=== PATIENT | female | born 1990 | race Caucasian/White ===

== ENCOUNTER → 2020-09-29 15:10 | Outpatient (CLI) | payer OTHER, SELFPAY ==
[2020-09-29 16:07] LABS: Basophils # 0.1 K/mm3 (0-0.2); Basophils % 0.6 % (0.1-2.0); Eosinophils # 0.2 K/mm3 (0.0-0.4); Eosinophils % 1.5 % (0.1-12.0); Hematocrit 35.5 % (37.0-47.0); Hemoglobin 11.4 g/dL (12.2-16.2); Lymphocytes # 3.6 K/mm3 (0.7-4.5); Lymphocytes % 32.6 % (10-50); Mean Corpuscular HGB Conc 32.1 g/dL (31.8-35.4); Mean Corpuscular Hemoglobin 27.7 pg (27.0-31.2); Mean Corpuscular Volume 86.1 fl (81-99); Monocytes # 0.4 K/mm3 (0.1-1.0); Monocytes % 3.4 % (1.7-9.3); Neutrophils # 6.9 K/mm3 (1.8-7.8); Neutrophils % 61.9 % (37.0-80.0); Platelet Count 349 K/mm3 (142-424); Red Blood Count 4.12 M/mm3 (4.20-5.40); Red Cell Distribution Width 16.6 % (11.5-17.5); White Blood Count 11.1 K/mm3 (4.8-10.8)
[2020-09-29 16:46] LABS: 25-OH Vitamin D, Total 19.9 ng/mL (30-100)
[2020-09-29 17:18] LABS: Vitamin B12 209 pg/mL (239-931)
[2020-09-29 18:03] LABS: Ferritin 5.03 ng/ml (6.24-137)
[2020-10-01 08:28] LABS: HIV Screen 4th Generation wRfx Non Reactive (Non Reactive)
[2020-10-01 10:12] LABS: HSV 2 IgG, Type Spec <0.91 index (0.00-0.90); Hepatitis B Surface Antigen Negative (Negative); Hepatitis C Antibody <0.1 s/co ratio (0.0-0.9); Rapid Plasma Reagin Ab Titer Non Reactive (NonRea<1:1); Rubella Antibodies, IgG 1.18 index (Immune >0.99)
== END ==
PROVIDERS: Visit Provider Nurse Practitioner Obstetrics & Gynecology
DX: Z34.90 Encounter for supervision of normal pregnancy, unspecified, unspecified trimester (principal)
CPT/HCPCS: 36415; 82306; 82607; 82728; 85025; 86592; 86695; 86703; 86762; 86790; 86850; 86870; 87340; 87380; G0432

== ENCOUNTER 2020-10-01 14:01 | Emergency (ER) | payer OTHER, SELFPAY ==
[2020-10-01] VITALS (7 sets, daily range): BP systolic 101–109; BP diastolic 65–71; PULSE 64–72; RESP 14–18; TEMP 36.6–36.7; O2SAT 100; BMI 27.6
--- NOTE | 2020-10-01 13:57 | ECG_ITS ---
APPROVED REPORT Exam: Resting ECG HR:69 bpm ECG Measurements Heart Rate 69 AXES NE 128 P 71 QRSd 96 QRS 77 QT 410 T 52 QTc 439 Conclusion Normal sinus rhythm Normal ECG Electronically signed by : Rudy Rider, 10/02/2020 08:45:51
--- NOTE | 2020-10-01 14:15 | HMH.EDGENADL ---
ED Disposition Clinical Impression: Atypical chest pain Disposition: Home, Self-Care Condition on Discharge: Good Instructions: DI for Atypical Chest Pain Additional Instructions: Additional instructions for CHEST PAIN: See your physician as soon as possible for further evaluation. Return immediately if worsening chest pain, vomiting, shortness of breath, fever, coughing of blood. Referrals: Luis Manuel Aguirre [Primary Care Provider] - - Critical Care Critical Care Time: No Attestation: On 10/01/20, the high probability of a clinically significant, sudden or life threatening deterioration of the following system(s) required my full and direct attention, intervention and personal management. The time I documented below is in addition to time spent performing reported procedures but includes the following listed in this critical care notation. Medical Decision Making - Alex Inquiry Pt receiving controlled substance: No Vital Signs: 10/01/20 14:05 10/01/20 14:11 10/01/20 14:15 Temperature 98.1 F Temperature Source Oral Pulse Rate 65 66 Pulse Rate [Right Radial] 72 Respiratory Rate 18 15 17 Blood Pressure Blood Pressure [Right Arm] 106/69 L Blood Pressure Mean Blood Pressure Mean [Right Arm] 81 02 Sat by Pulse Oximetry 100 100 100 Oxygen Delivery Method Room Air 10/01/20 14:30 10/01/20 14:45 10/01/20 15:00 Temperature Temperature Source Pulse Rate 64 66 65 Pulse Rate [Right Radial] Respiratory Rate 15 16 17 Blood Pressure 101/65 L 108/68 L Blood Pressure [Right Arm] Blood Pressure Mean 74 74 Blood Pressure Mean [Right Arm] 02 Sat by Pulse Oximetry 100 100 100 Oxygen Delivery Method - Lab Data Lab Results 10/01/20 14:00: WBC 8.9, RBC 4.04 L, Hgb 11.0 L, Hct 35.0 L, MCV 86.6, MCH 27.2, MCHC 31.4 L, RDW 16.0, Plt Count 325, MPV 7.1 L, Neut % (Auto) 60.5, Lymph % (Auto) 32.4, [place] % (Auto) 5.0, Eos % (Auto) 1.4, Baso % (Auto) 0.6, Neut # (Auto) 5.4, Lymph # (Auto) 2.9, [place] # (Auto) 0.5, Eos # (Auto) 0.1, Baso # (Auto) 0.1 10/01/20 14:00: Sodium 134 L, Potassium 3.4 L, Chloride 103, Carbon Dioxide 24, Anion Gap 10.4, BUN 8, Creatinine 0.60, Estimated Creat Clear 175, Estimated GFR 116, Est GFR ( Amer) 140, Glucose 95, Calcium 9.6, Troponin I < 0.01 Result diagrams: 10/01/20 14:00 10/01/20 14:00 Orders (Tests/Meds): ORDERS Category Date Time Status Troponin I Q3H Lab 10/01/20 17:30 Ordered Troponin I Q3H Lab 10/01/20 20:30 Ordered - ECG Data Tracing #1 EKG interpreted by Migel Alfaro MD: Rhythm: sinus Rate: 69 [place]: normal Ectopy: none Conduction: normal ST Segment Changes: none T Wave Changes: none Q Waves: none No evidence of acute ischemia or injury Normal electrocardiogram Medical Decision Narrative: I do not suspect cardiovascular disease based on presentation. Discussed further work-up with the patient to rule out pulmonary cause including pulmonary embolism. The patient states that she does not want any radiographic studies. I discussed the D-dimer, which is expected to rise in , and would only be helpful if negative. Because of the D-dimer were elevated she would still not want any sort of radiographic studies. I therefore do not feel that D-dimer would be clinically useful. The patient symptoms have completely resolved. She has normal vital signs, no tachycardia, pulse ox of 100% on room air. I feel she can be discharged to return if her symptoms worsen, otherwise follow-up with her primary care doctor for outpatient work-up. General Adult HPI - General Chief complaint: Chest Pain Stated complaint: chest pain Time Seen by Provider: 10/01/20 15:30 Mode of Arrival: Ambulatory Limitations: No Limitations Description of Symptoms (Recalled from ER Triage Doc. by RN): Pt complains of chest pain that started this morning, describes that the pain started under her right breast bone radiating into u
[2020-10-01 14:26] LABS: Basophils # 0.1 K/mm3 (0-0.2); Basophils % 0.6 % (0.1-2.0); Eosinophils # 0.1 K/mm3 (0.0-0.4); Eosinophils % 1.4 % (0.1-12.0); Lymphocytes # 2.9 K/mm3 (0.7-4.5); Lymphocytes % 32.4 % (10-50); Mean Corpuscular HGB Conc 31.4 g/dL (31.8-35.4); Mean Corpuscular Hemoglobin 27.2 pg (27.0-31.2); Mean Corpuscular Volume 86.6 fl (81-99); Mean Platelet Volume 7.1 fl (7.4-10.4); Monocytes # 0.5 K/mm3 (0.1-1.0); Neutrophils # 5.4 K/mm3 (1.8-7.8); Neutrophils % 60.5 % (37.0-80.0); Platelet Count 325 K/mm3 (142-424); Red Blood Count 4.04 M/mm3 (4.20-5.40); White Blood Count 8.9 K/mm3 (4.8-10.8)
[2020-10-01 14:27] LABS: Chloride 103 mmol/L (98-107); Sodium 134 mmol/L (136-145)
[2020-10-01 14:28] LABS: Potassium 3.4 mmoL/L (3.5-5.1)
[2020-10-01 14:31] LABS: Anion Gap 10.4 mEq/L (5-15); Blood Urea Nitrogen 8 mg/dl (7-17); Calcium 9.6 mg/dl (8.4-10.2); Carbon Dioxide 24 mmol/L (22.0-30.0); Creatinine Clearance Estimated 175 mL/min (50-200); Estimated Glomerular Filt Rate 116 ml/min (>60); GFR (African American) 140 ML/MIN (>60); Glucose 95 mg/dl (74-100)
[2020-10-01 14:44] LABS: Troponin I < 0.01 ng/ml (0.00-0.034)
== END 2020-10-01 16:41 | disposition home or self-care (01) ==
PROVIDERS: Emergency Provider Emergency Medicine; PCP Family Medicine
DX: R07.89 Other chest pain (principal); Z3A.10 10 weeks gestation of pregnancy
CPT/HCPCS: 80048; 84484; 85025; 93005; 99282

== ENCOUNTER → 2020-10-04 13:46 | Outpatient (CLI) | payer OTHER, SELFPAY ==
--- NOTE | 2020-10-04 13:46 | US_ITS ---
PROCEDURE: US OB <= 14 WEEKS FETUS CLINICAL INDICATION: for dates COMPARISON: No exams were available for comparison FINDINGS: An intrauterine gestational sac is present with a pole with a crown-rump length of 3.91cm correlating to gestational age of 10weeks 6days. heart tones are present with an FHR of 174bpm. Yolk sac is noted. Unremarkable adnexa IMPRESSION: Live IUP 10 weeks 6 days Estimated due date by Ultrasound is 04/26/2021 Dictated by: Je Smith MD 10/05/2020 16:21 Je Smith MD in [place] 10/05/2020 16:21
== END ==
PROVIDERS: PCP Nurse Practitioner Family; Visit Provider Nurse Practitioner Obstetrics & Gynecology
DX: Z34.90 Encounter for supervision of normal pregnancy, unspecified, unspecified trimester (principal)
CPT/HCPCS: 76801

== ENCOUNTER → 2020-10-27 15:20 | Outpatient (CLI) | payer OTHER, SELFPAY | PROVIDERS: Visit Provider Nurse Practitioner Obstetrics & Gynecology | DX: Z31.430 Encounter of female for testing for genetic disease carrier status for procreative management (principal); Z36.0 Encounter for antenatal screening for chromosomal anomalies; O28.3 Abnormal ultrasonic finding on antenatal screening of mother | CPT/HCPCS: 36415 ==

== ENCOUNTER → 2020-12-09 12:36 | Outpatient (CLI) | payer OTHER, SELFPAY ==
--- NOTE | 2020-12-09 12:37 | US_ITS ---
PROCEDURE: US OB >= 14 WEEKS FETUS CLINICAL INDICATION: 20 wk plus anatomy scan-After 14 wks COMPARISON: US US OB <= 14 WEEKS FETUS from 10/04/2020 FINDINGS: There is a single live fetus present which is in breech presentation. heart body motion noted. Cervix is closed measuring 4 cm. The placenta is anterior and grade 1. Complete survey performed and was unremarkable on the submitted images as in PACS. No discrete anomalies identified on survey imaging by technologist. Active fetus. Three-vessel cord with satisfactory umbilical cord insertion. 4- chamber heart noted. Survey of brain & ventricles Unremarkable. Face and neck survey unremarkable. Diaphragm and chest views unremarkable. Abdomen: Both kidneys noted and unremarkable. Stomach noted and satisfactory. Spine: Survey of the spine satisfactory with no anomalies identified nor imaged. Both arms and legs noted. Amniotic Fluid: Adequate. Maternal adnexa: No significant findings. Measurements: Average ultrasound age 20weeks 1day. Gestational Age 20weeks 1day Estimated due date by ultrasound age 1104/27/2021. Estimated weight 342g BPD = 20weeks 2days OFD = 20weeks 1day HC = 19weeks 3days AC = 20weeks 3days FL = 20weeks 2days Growth Percentile= 43% Heart Rate = 147bpm Cerebellum = 20weeks 2days Humerus = 20weeks 5days HC/AC is 1.1 CI is 0.8 FL/BPD is 0.7 FL/AC is 0.22 IMPRESSION: Live IUP in breech presentation with an average ultrasound age of 20 weeks and 1 day. All parameters correlate with no obvious anomalies. Please see above for detail. Dictated by: Je Smith MD 12/09/2020 16:08 Je Smith MD in [place] 12/09/2020 16:08
== END ==
PROVIDERS: PCP Family Medicine; Visit Provider Nurse Practitioner Obstetrics & Gynecology
DX: Z36.0 Encounter for antenatal screening for chromosomal anomalies (principal)
CPT/HCPCS: 76805

== ENCOUNTER → 2021-02-09 08:39 | Outpatient (CLI) | payer OTHER, SELFPAY ==
[2021-02-09 09:26] LABS: Glucose,Fasting 82 mg/dl (74-100)
[2021-02-09 10:21] LABS: Glucose 1 Hour 149 mg/dL (74-100)
== END ==
PROVIDERS: Visit Provider Nurse Practitioner Obstetrics & Gynecology
DX: Z34.90 Encounter for supervision of normal pregnancy, unspecified, unspecified trimester (principal)
CPT/HCPCS: 36415; 82951

== ENCOUNTER → 2021-03-18 11:19 | Outpatient (CLI) | payer OTHER, SELFPAY ==
[2021-03-18 11:41] LABS: Basophils # 0.1 K/mm3 (0-0.2); Basophils % 0.4 % (0.1-2.0); Eosinophils # 0.2 K/mm3 (0.0-0.4); Eosinophils % 1.3 % (0.1-12.0); Hematocrit 36.1 % (37.0-47.0); Hemoglobin 11.4 g/dL (12.2-16.2); Lymphocytes # 2.8 K/mm3 (0.7-4.5); Mean Corpuscular HGB Conc 31.6 g/dL (31.8-35.4); Mean Corpuscular Hemoglobin 30.1 pg (27.0-31.2); Mean Corpuscular Volume 95.3 fl (81-99); Mean Platelet Volume 7.1 fl (7.4-10.4); Monocytes # 0.4 K/mm3 (0.1-1.0); Monocytes % 3.1 % (1.7-9.3); Neutrophils # 8.2 K/mm3 (1.8-7.8); Neutrophils % 71.3 % (37.0-80.0); Platelet Count 366 K/mm3 (142-424); Red Blood Count 3.79 M/mm3 (4.20-5.40); Red Cell Distribution Width 14.1 % (11.5-17.5); White Blood Count 11.6 K/mm3 (4.8-10.8)
[2021-03-18 12:03] LABS: Glucose,Fasting 85 mg/dl (74-100)
[2021-03-18 12:52] LABS: 25-OH Vitamin D, Total 33.8 ng/mL (30-100)
[2021-03-18 13:24] LABS: Vitamin B12 236 pg/mL (239-931)
== END ==
PROVIDERS: Visit Provider Nurse Practitioner Obstetrics & Gynecology
DX: Z34.90 Encounter for supervision of normal pregnancy, unspecified, unspecified trimester (principal); Z3A.29 29 weeks gestation of pregnancy; R73.09 Other abnormal glucose
CPT/HCPCS: 36415; 82306; 82607; 82951; 85025

== ENCOUNTER → 2021-03-25 11:15 | Outpatient (CLI) | payer OTHER, SELFPAY ==
--- NOTE | 2021-03-25 11:20 | US_ITS ---
PROCEDURE: US OB BPP W/FET-MAT S/D CLINICAL INDICATION: FINDINGS: The following parameters are obtained: There is a single live fetus present in cephalic presentation. heart and body motion noted. The placenta is anterior and grade 2. Average ultrasound age is Average 35weeks 1day Estimated due date by ultrasound is 04/28/2021. Estimated weight is 2,552g. This is 34 percentile. Biophysical profile 8 of 8. ROBERT is 12 cm. Cervix is closed and measures 4 cm in length. SD ratio is 2.0 with a resistive index of 0.5 both less than 90th percentile. BPD: 35weeks 2days OFD: 34 weeks 4 days HC: 34weeks 6days AC: 35weeks FL: 35weeks heart rate: 144bpm bpm. HC/AC: 1.01 Cephalic index: 0.79 FL/BPD: 0.78 FL/AC: 0.22 Amniotic fluid index: 12.42cm The femur length is 35weeks Biophysical profile is 8 of 8. IMPRESSION: There is a single live fetus present in cephalic presentation. heart and body motion noted. The placenta is anterior and grade 2. Average ultrasound age is Average 35weeks 1day Estimated due date by ultrasound is 04/28/2021. Estimated weight is 2,552g. This is 34 percentile. Biophysical profile 8 of 8. ROBERT is 12 cm. Cervix is closed and measures 4 cm in length. SD ratio is 2.0 with a resistive index of 0.5 both less than 90th percentile. Dictated by: Je Smith MD 03/25/2021 15:11 Je Smith MD in [place] 03/25/2021 15:11
== END ==
PROVIDERS: PCP Family Medicine; Visit Provider Nurse Practitioner Obstetrics & Gynecology
DX: O36.5990 Maternal care for other known or suspected poor fetal growth, unspecified trimester, not applicable or unspecified (principal)
CPT/HCPCS: 76811; 76819; 76820

== ENCOUNTER → 2021-04-01 15:07 | Outpatient (CLI) | payer OTHER, SELFPAY | LOC: LAB 15:08 → LAB.DROPOF 15:09 | PROVIDERS: Visit Provider Nurse Practitioner Obstetrics & Gynecology | DX: Z34.90 Encounter for supervision of normal pregnancy, unspecified, unspecified trimester (principal) | CPT/HCPCS: 86403 ==

== ENCOUNTER 2021-04-11 21:17 | Outpatient (CLI) | payer OTHER, SELFPAY ==
[2021-04-11 21:31] VITALS: BP 130/71; PULSE 66; RESP 18; TEMP 36.7; O2SAT 100; BMI 28.5
[2021-04-12 01:01] LABS: Microscopic, Urine URINE MICROSCOPIC (MICROSCOPIC)
[2021-04-12 01:23] LABS: Bilirubin,Urine Negative (Negative); Blood, Urine Negative (Negative); Glucose,Urine (UA) Negative (Negative); Ketones,Urine 1+ (Negative); Leukocyte Esterase,Urine Negative (Negative); Nitrate,Urine Negative (Negative); Protein,Urine Negative (Negative); Urobilinogen,Urine 0.2 EU/dl (0.2)
[2021-04-12 01:27] LABS: Appearance,Urine Slightly Cloudy (Clear); Color,Urine Dark Yellow (Yellow)
[2021-04-12 01:38] LABS: Amphetamine/Metha Screen,Urine Negative ng/ml (<1000); Barbiturates Screen,Urine Negative ng/ml (<200)
[2021-04-12 01:39] LABS: Benzodiazepines Screen,Urine Negative ng/ml (<200)
[2021-04-12 01:40] LABS: Cannabinoid Screen,Urine Positive ng/ml (<50); Cocaine Screen,Urine Negative ng/ml (<300)
[2021-04-12 01:41] LABS: Methadone Screen,Urine Negative ng/ml (<300); Opiate Screen,Urine Negative ng/ml (<300)
[2021-04-12 01:42] LABS: Phencyclidine Screen,Urine Negative ng/ml (<25)
[2021-04-12 01:58] LABS: Bacteria,Urine 1+ /lpf
== END 2021-04-11 23:36 | disposition home or self-care (01) ==
LOC: OBOUT 21:21 → OB 21:21
PROVIDERS: PCP Family Medicine; Visit Provider Nurse Practitioner Obstetrics & Gynecology
DX: O60.03 Preterm labor without delivery, third trimester (principal); Z3A.37 37 weeks gestation of pregnancy
CPT/HCPCS: 59025; 80305; 81001; 96365; 96372; G0463

== ENCOUNTER → 2021-04-18 11:00 | Outpatient (CLI) | payer OTHER, SELFPAY ==
[2021-04-18 11:34] LABS: Basophils # 0.1 K/mm3 (0-0.2); Basophils % 1.2 % (0.1-2.0); Eosinophils # 0.1 K/mm3 (0.0-0.4); Eosinophils % 0.6 % (0.1-12.0); Hematocrit 35.2 % (37.0-47.0); Hemoglobin 11.6 g/dL (12.2-16.2); Lymphocytes % 31.4 % (10-50); Mean Corpuscular Hemoglobin 29.9 pg (27.0-31.2); Mean Corpuscular Volume 90.8 fl (81-99); Mean Platelet Volume 8.3 fl (7.4-10.4); Monocytes # 0.3 K/mm3 (0.1-1.0); Monocytes % 3.6 % (1.7-9.3); Neutrophils % 63.1 % (37.0-80.0); Platelet Count 419 K/mm3 (142-424); Red Blood Count 3.87 M/mm3 (4.20-5.40); Red Cell Distribution Width 14.8 % (11.5-17.5); White Blood Count 9.5 K/mm3 (4.8-10.8)
[2021-04-18 14:22] LABS: Chloride 103 mmol/L (98-107); Potassium 4.7 mmoL/L (3.5-5.1); Sodium 133 mmol/L (136-145)
[2021-04-18 14:25] LABS: Anion Gap 8.7 mEq/L (5-15); Blood Urea Nitrogen 13 mg/dl (7-17); Calcium 8.9 mg/dl (8.4-10.2); Carbon Dioxide 26 mmol/L (22.0-30.0); Estimated Glomerular Filt Rate 73 ml/min (>60); GFR (African American) 88 ML/MIN (>60); Glucose 79 mg/dl (74-100)
== END ==
PROVIDERS: Visit Provider Nurse Practitioner Obstetrics & Gynecology
DX: Z01.818 Encounter for other preprocedural examination (principal); Z34.90 Encounter for supervision of normal pregnancy, unspecified, unspecified trimester
CPT/HCPCS: 36415; 80048; 85025; C9803; U0003; U0005

== ENCOUNTER 2021-04-19 06:15 | Outpatient (CLI) | payer OTHER, SELFPAY ==
[2021-04-19 06:30] VITALS: BMI 27.9
[2021-04-19 06:55] LABS: Microscopic, Urine URINE MICROSCOPIC (MICROSCOPIC)
[2021-04-19 06:57] LABS: Appearance,Urine CLEAR (Clear); Bilirubin,Urine Negative (Negative); Blood, Urine 1+ (Negative); Color,Urine YELLOW (Yellow); Glucose,Urine (UA) Negative (Negative); Ketones,Urine Negative (Negative); Leukocyte Esterase,Urine 1+ (Negative); Nitrate,Urine Negative (Negative); Protein,Urine Negative (Negative); Specific Gravity, Urine 1.025 (1.005-1.030); Urobilinogen,Urine 0.2 EU/dl (0.2)
[2021-04-19 07:00] VITALS: BP 115/75; PULSE 72; RESP 18; TEMP 36.9; O2SAT 100; BMI 27.9
[2021-04-19 07:12] LABS: Barbiturates Screen,Urine Negative ng/ml (<200)
[2021-04-19 07:13] LABS: Amphetamine/Metha Screen,Urine Negative ng/ml (<1000); Benzodiazepines Screen,Urine Negative ng/ml (<200)
[2021-04-19 07:14] LABS: Methadone Screen,Urine Negative ng/ml (<300)
[2021-04-19 07:15] LABS: Cannabinoid Screen,Urine Positive ng/ml (<50); Cocaine Screen,Urine Negative ng/ml (<300)
[2021-04-19 07:16] LABS: Opiate Screen,Urine Negative ng/ml (<300); Phencyclidine Screen,Urine Negative ng/ml (<25)
[2021-04-19 07:25] LABS: Amorphous Sediment,Urine 1+ /lpf; Bacteria,Urine 1+ /lpf
[2021-04-19 07:28] LABS: Yeast,Urine 1+ /lpf
== END 2021-04-19 09:38 | disposition home or self-care (01) ==
LOC: OBOUT 06:17 → OB 06:18 → OBOUT 06:20 → OB 06:24
PROVIDERS: Visit Provider Nurse Practitioner Obstetrics & Gynecology
DX: Z34.90 Encounter for supervision of normal pregnancy, unspecified, unspecified trimester (principal)
CPT/HCPCS: 59025; 80305; 81001; 87086; G0463

== ENCOUNTER 2021-04-19 23:30 | Inpatient (IN) | payer OTHER, SELFPAY ==
[2021-04-19 23:15] VITALS: BP 123/82; PULSE 70; RESP 18; TEMP 37.3; O2SAT 97; BMI 28.5
[2021-04-20 00:10] VITALS: BMI 28.5
[2021-04-20 00:18] LABS: Coronavirus 19, PCR Not Detected (NotDetected); Influenza A, PCR Not Detected (NotDetected); Influenza B, PCR Not Detected (NotDetected)
[2021-04-20 00:40] LABS: Basophils # 0.1 K/mm3 (0-0.2); Basophils % 0.5 % (0.1-2.0); Eosinophils # 0.1 K/mm3 (0.0-0.4); Eosinophils % 0.6 % (0.1-12.0); Hematocrit 33.9 % (37.0-47.0); Hemoglobin 10.9 g/dL (12.2-16.2); Lymphocytes # 2.9 K/mm3 (0.7-4.5); Lymphocytes % 21.7 % (10-50); Mean Corpuscular HGB Conc 32.1 g/dL (31.8-35.4); Mean Corpuscular Hemoglobin 29.2 pg (27.0-31.2); Mean Corpuscular Volume 90.7 fl (81-99); Mean Platelet Volume 8.4 fl (7.4-10.4); Monocytes # 0.4 K/mm3 (0.1-1.0); Monocytes % 3.3 % (1.7-9.3); Neutrophils # 9.8 K/mm3 (1.8-7.8); Platelet Count 413 K/mm3 (142-424); Red Blood Count 3.74 M/mm3 (4.20-5.40); Red Cell Distribution Width 14.9 % (11.5-17.5); White Blood Count 13.2 K/mm3 (4.8-10.8)
[2021-04-20 04:34] VITALS: BP 121/56; PULSE 65; RESP 17; TEMP 37; O2SAT 99
[2021-04-20 08:00] VITALS: BP 110/56; PULSE 71; RESP 20; TEMP 36.8; O2SAT 99
[2021-04-20 08:04] LABS: Hematocrit 31.7 % (37.0-47.0); Hemoglobin 10.7 g/dL (12.2-16.2)
--- NOTE | 2021-04-20 11:08 | HMH.ACPN2 ---
Internal Medicine - PN: Subj *Date: 04/20/21 *Time: 11:08 Interval history: She continues to do well. She says that she is bottlefeeding. Her lochia is normal. She denies any pain. Exam Vital signs and Labs for Last 24 Hours: Temp Pulse Resp BP Pulse Ox 98.3 F 71 20 110/56 L 99 04/20/21 08:00 04/20/21 08:00 04/20/21 08:00 04/20/21 08:00 04/20/21 08:00 Laboratory Results - last 24 hr 04/19/21 23:28: Blood Type O Negative, Antibody Screen Positive 04/20/21 00:10: WBC 13.2 H D, RBC 3.74 L, Hgb 10.9 L, Hct 33.9 L, MCV 90.7, MCH 29.2, MCHC 32.1, RDW 14.9, Plt Count 413, MPV 8.4, Neut % (Auto) 74.0, Lymph % (Auto) 21.7, [place] % (Auto) 3.3, Eos % (Auto) 0.6, Baso % (Auto) 0.5, Neut # (Auto) 9.8 H, Lymph # (Auto) 2.9, [place] # (Auto) 0.4, Eos # (Auto) 0.1, Baso # (Auto) 0.1 04/20/21 00:10: SARS-CoV-2 (PCR) Not detected, Influenza A Untype (PCR) Not detected, Influenza Type B (PCR) Not detected 04/20/21 07:35: Hgb 10.7 L, Hct 31.7 L I & O for Last 24 hours: Intake & Output 04/17/21 04/18/21 04/19/21 04/20/21 11:59 11:59 11:59 11:59 Weight 188 lb - Constitutional no acute distress - *Routine HEENT Exam Head: Present: normocephalic Eye: Present: EOMI, PERRL ENT: Present: mucous membranes moist Assessment and Plan (1) Normal delivery Status: Acute Category: Medical Code(s): O80 - Encounter for full-term uncomplicated delivery (2) , delivered Status: Acute Category: Medical Code(s): O34.219 - Maternal care for unspecified type scar from previous delivery - Assessment and plan all Dx Assessment and Plan for all problems:: She is doing well today. We will plan to send her home tomorrow.
--- NOTE | 2021-04-20 11:43 | HMH.OBAPHP ---
OB - H&P: HPI Antepartum - History of Present Illness Chief complaint: Contractions, precipitous delivery History of present illness: She is a 6 para 4 at 39 weeks gestational age. She came in with contractions. She made it as far as the bathroom on arrival and felt the urge to push. The nurses were able to get her to the triage room and she delivered precipitously a liveborn child. The baby weighed 6 pounds 4 ounces and had Apgars of 9 at 1 minute and 9 at 5 minutes. The baby was 18-1/2 inches long. She has had a previous section and was scheduled for a the next morning after her delivery. She has O- blood, she is rubella immune and was group B streptococcus negative. She plans to bottlefeed. 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 The estimated blood loss at the time of delivery was less than 200 cc. [facility] History I have reviewed the patient's past medical history: Yes *Have you ever received a pneumonia vaccine?: No *Have you received a flu vaccine this season?: No Other Surgeries: Yes: Bariatric Surgery, Cholecystectomy, Amputation: No Fractures: No - *Social History Smoking Status: Current every day smoker Tobacco Type: cigarettes Alcohol Intake: never Substance Use Type: marijuana *Occupational Status:: unemployed *Travel in the last 8 weeks: None Family Hx:: Hypertension, Diabetes Para: 4 Review of Systems - Review of Systems Review of systems:: pertinent systems reviewed and negative unless documented below Meds Home Medications Medication Instructions Recorded Confirmed Type Famotidine [Pepcid 20mg Tablet] 20 mg PO DAILY 04/20/21 04/20/21 History Miscellaneous [Unknown Home 1 each PO HS 04/20/21 04/20/21 History Medication] Vits96/Iron Fum/Folic 1 tab PO 1700 04/20/21 04/20/21 History [ MVI w/Iron Tablet] Allergies Allergy/AdvReac Type Severity Reaction Status Date / Time No Known Allergies Allergy Verified 04/15/21 09:44 OB - H&P: Exam - Physical Exam Vital signs: Temp Pulse Resp BP Pulse Ox 98.3 F 71 20 110/56 L 99 04/20/21 08:00 04/20/21 08:00 04/20/21 08:00 04/20/21 08:00 04/20/21 08:00 - Constitutional no acute distress - Routine HEENT Exam Head: Present: normocephalic Eye: Present: EOMI, PERRL ENT: Present: mucous membranes moist - Routine Neck Exam Present: supple, full ROM - Routine Respiratory Exam Absent: accessory muscle use (good air entry bilaterally), respiratory distress, wheezes, crackles - Routine Cardiovascular Exam Present: RRR. Absent: murmur - Routine Abdominal Exam Present: soft, normoactive bowel sounds. Absent: tenderness, distended, guarding - Routine Rectal Exam Patient deferred: visual exam, digital exam - Routine Exam Patient deferred: external exam, groin exam, perineal exam - Routine Extremities Exam Present: full ROM. Absent: cyanosis, edema - Routine Skin Exam Present: intact. Absent: cyanosis - Routine Neurological Exam Present: alert, oriented X3 - Routine Psychiatric Exam Present: normal affect OB - Results - Labs Labs: Short CBC 04/20/21 04/20/21 Range/Units 00:10 07:35 WBC 13.2 H D (4.8-10.8) K/mm3 Hgb 10.9 L 10.7 L (12.2-16.2) g/dL Hct 33.9 L 31.7 L (37.0-47.0) % Plt Count 413 (142-424) K/mm3 OB - A/P Antepartum (1) Normal delivery Status: Acute (2) , delivered Status: Acute - Additional Plan Planning to breastfeed?: No Plan: other Additional Information:: She was admitted with a precipitous delivery. She is a . She did well with the delivery.
--- NOTE | 2021-04-20 14:30 | SW/DCPLANNER ---
Addendum entered by Annmarie Benavides 05/09/21 14:49: CORD SCREEN CAME BACK POSITIVE FOR CANNABINOIDS AND CARBOXY... THIS WAS REPORTED TO CENTRAL INTAKE FOR INVESTIGATION WITH AN ID# [id number] Addendum entered by Annmarie Benavides 04/21/21 14:09: TRANSIT PLANNING DIRECTOR CAME TO SEE PATIENT AND AND CLEARED THEM TO DISCHARGE HOME WITH MOM WHEN PATIENT AND ARE MEDICALLY READY FOR DISCHARGE... PREVENTION PLAN ON CHART.. Addendum entered by Annmarie Benavides 04/21/21 09:44: CASE WAS ACCEPTED FOR INVESTIGATION... WORKER AT HOSPITAL AT PRESENT TIME... Original Note: RECEIVED REFERRAL ON THIS PATIENT WHO HAD POSITIVE THC VISITS ON 03/18, 04/01,04/08, 04/11, 04/19.. SHE DELIVERED A LIVE BORN FEMALE AND NAMED HER DEMI JOHNSON, THERE ARE 4 BROTHERS IN THE HOME. PATIENT WAS SCHEDULED TO HAVE TMRW () BUT WENT INTO LABOR AND HAVE IT VAGINALLY. SINCE PATIENT AND WERE POSITIVE, IT WAS CALLED INTO CENTRAL INTAKE AND INFORMATION WAS GIVEN TO KAREN AND ID# [id number].. PATIENT RECEIVES [employer] AND FOOD STAMPS.. PATIENT HAS CHOSEN DR CORDOVA FOR THE INFANTS DOCTOR...PATIENT MAY BE READY FOR DISCHARGE EITHER IN THE AM OR SUNDAY PENDING RESULTS FROM THE CABINET...
[2021-04-20 16:30] VITALS: BP 135/86; PULSE 66; RESP 18; TEMP 36.9; O2SAT 99
[2021-04-21 08:00] VITALS: BP 106/58; PULSE 70; RESP 18; TEMP 36.7; O2SAT 100
--- NOTE | 2021-04-21 09:12 | HMH.OBDCSM ---
General - General Admission date:: 04/19/21 Discharge date: 04/21/21 HPI - History of Present Illness History of present illness: She is a 30-year-old 6 para 4 aborta 1 who is 39 weeks gestational age. She was scheduled for a section and came in in active labor and spontaneously delivered. Hospital Course Hospital Course: She arrived in the evening of April 19, 2021 in active labor. She was fully dilated and precipitously delivered a liveborn female child at 11:15 PM in the evening of April 19, 2021. The baby weighed 6 pounds 4 ounces and was 18-1/2 inches long. She had Apgars of 9 at 1 minute and 9 at 5 minutes. She has done well and has remained afebrile throughout her hospitalization. She is eating and drinking and ambulating. She is bottlefeeding. She is discharged home to follow-up with me in approximately 2 weeks time. She was given the usual instructions with respect to limiting her activity, driving and sexual activity. She will have a bilateral salpingectomy in approximately 2 weeks time. She will continue with her vitamins and iron. She is taking [id number] analgesics. She has Rh-negative blood in the baby was also Rh- so she does not require RhoGam. Her condition on discharge is stable and improved. Rhogam Administration: Not Indicated Objective Vital signs: Temp Pulse Resp BP Pulse Ox 98.0 F 70 18 106/58 L 100 04/21/21 08:00 04/21/21 08:00 04/21/21 08:00 04/21/21 08:00 04/21/21 08:00 no acute distress - *Routine HEENT Exam Head: Present: normocephalic Eye: Present: EOMI, PERRL ENT: Present: mucous membranes moist Results Labs on day of discharge: Labs from last 24 hours 04/19/21 23:28 Antibody Identification Anti-D DS: Diagnosis - Discharge Diagnosis (1) Normal delivery Status: Acute (2) , delivered Status: Acute (3) Precipitous delivery, delivered (current hospitalization) Status: Acute Discharge Plan - Patient Discharge Instructions ACTIVITY: No heavy lifting DIET: continue same diet Additional Instructions: Nothing in the vagina for 6 weeks, and no heavy lifting. Patient Instructions: Depression, Hemorrhage, DI for Labor and Delivery, Vaginal , DI for Pre-eclampsia, [facility] Post Discharge Instructions, Preventing the Spread of Coronavirus Discharge Instructions - Follow up Plan Follow up with: Shawn Carlson MD [Staff Physician] - Disposition: Home, Self-Care Condition at discharge:: Stable Home Medications: Home Medications Medication Instructions Recorded Confirmed Type Famotidine [Pepcid 20mg Tablet] 20 mg PO DAILY 04/20/21 04/20/21 History Miscellaneous [Unknown Home 1 each PO HS 04/20/21 04/20/21 History Medication] Vits96/Iron Fum/Folic 1 tab PO 1700 04/20/21 04/20/21 History [ MVI w/Iron Tablet] Prescriptions/Medication Reconciliation: Continued Famotidine [Pepcid 20mg Tablet] 20 mg PO DAILY Miscellaneous [Unknown Home Medication] 1 each PO HS Vits96/Iron Fum/Folic [ MVI w/Iron Tablet] 1 tab PO 1700 - Problem Reconciliation Problems Reviewed?: Yes
== END 2021-04-21 12:50 | disposition home or self-care (01) | DRG 807 ==
LOC: OBOUT 23:31 → OB 23:31
PROVIDERS: Obstetrics & Gynecology; Admitting Provider Nurse Practitioner Obstetrics & Gynecology; Visit Provider Nurse Practitioner Obstetrics & Gynecology
DX: O62.3 Precipitate labor (principal); Z37.0 Single live birth; Z3A.39 39 weeks gestation of pregnancy
CPT/HCPCS: 59612; 36415; 59025; 80048; 80305; 81001; 85014; 85018; 85025; 86850; 86870; 87086; C9803; G0463; U0003; U0005

== ENCOUNTER → 2021-07-27 09:52 | Outpatient (CLI) | payer OTHER, SELFPAY ==
[2021-07-27 10:20] LABS: Basophils # 0.1 K/mm3 (0-0.2); Basophils % 0.7 % (0.1-2.0); Eosinophils # 0.2 K/mm3 (0.0-0.4); Hematocrit 37.5 % (37.0-47.0); Hemoglobin 11.8 g/dL (12.2-16.2); Lymphocytes # 2.7 K/mm3 (0.7-4.5); Lymphocytes % 25.4 % (10-50); Mean Corpuscular HGB Conc 31.4 g/dL (31.8-35.4); Mean Corpuscular Volume 89.2 fl (81-99); Mean Platelet Volume 7.8 fl (7.4-10.4); Monocytes # 0.5 K/mm3 (0.1-1.0); Monocytes % 4.4 % (1.7-9.3); Neutrophils # 7.2 K/mm3 (1.8-7.8); Neutrophils % 67.5 % (37.0-80.0); Platelet Count 397 K/mm3 (142-424); Red Blood Count 4.21 M/mm3 (4.20-5.40); Red Cell Distribution Width 18.8 % (11.5-17.5); White Blood Count 10.7 K/mm3 (4.8-10.8)
[2021-07-27 11:08] LABS: Chloride 105 mmol/L (98-107); HCG Qualitative, Serum Negative (Negative); Potassium 4.3 mmoL/L (3.5-5.1); Sodium 136 mmol/L (136-145)
[2021-07-27 11:11] LABS: Anion Gap 9.3 mEq/L (5-15); Blood Urea Nitrogen 7 mg/dl (7-17); Carbon Dioxide 26 mmol/L (22.0-30.0); Estimated Glomerular Filt Rate 96 ml/min (>60); GFR (African American) 117 ML/MIN (>60)
[2021-07-27 11:12] LABS: Calcium 8.4 mg/dl (8.4-10.2); Glucose 64 mg/dl (74-100)
== END ==
PROVIDERS: Visit Provider Nurse Practitioner Obstetrics & Gynecology
DX: Z01.818 Encounter for other preprocedural examination (principal); Z11.52 Encounter for screening for COVID-19
CPT/HCPCS: 36415; 80048; 84703; 85025; C9803; U0003; U0005

== ENCOUNTER 2021-07-29 09:31 | Day surgery (SDC) | payer OTHER, SELFPAY ==
[2021-07-25 09:59] VITALS: BMI 24.9
[2021-07-29] VITALS (10 sets, daily range): BP systolic 106–122; BP diastolic 66–78; PULSE 55–63; RESP 14–18; TEMP 36.1–36.5; O2SAT 99–100
--- NOTE | 2021-07-29 11:38 | HMH.ANESCL ---
[facility] Anesthesia Checklist - Patient Identification Patient Identification: Arm Band - Structural Data Admitted From: Home Planned Operative Procedure/s: Salpingectomy Consent for Planned Operative Procedure(s) Verified: Yes - NPO Status Verified Time NPO: 00:00 - Additional verifications Anesthesia Reactions: No Hx Blood Transfusions: No Blood Transfusion Reaction: No - Airway Assessment C-Spine Mobility Assessed: Yes TMJ Mobility Assessed: Yes Dentition: Good Dentition - Neurological Assessment Level of Consciousness: Awake Hx Seizures: No Numbness or tingling in extremities: No - Anesthesia Plan Anesthesia Risk discussed: Yes Anesthesia Plan: Verified ASA Class: II Anesthesia Type: General [facility] History I have reviewed the patient's past medical history: Yes Medical History: Reports:: Anxiety, Gastroesophageal Reflux Disease(GERD) Denies:: Cancer, Diabetes Mellitus Type 1, Diabetes Mellitus Type 2, Internal Pacemaker, MRSA, Seizures *Have you ever received a pneumonia vaccine?: No *Have you received a flu vaccine this season?: No Other Medical History: Denies: Blood Transfusion Reaction Anesthesia experience/problems:: None Other Surgeries: Yes: Bariatric Surgery, Cholecystectomy, . No: Pacemaker Amputation: No Fractures: No - *Social History Last grade of school completed: High school graduate Smoking Status: Current every day smoker Tobacco Type: cigarettes # Packs/Day (cigarettes): 1 Alcohol Intake: never Substance Use Type: marijuana *Occupational Status:: unemployed Housing: house Household Members: significant other, family *Travel in the last 8 weeks: None Family Hx:: Diabetes, Hypertension
--- NOTE | 2021-07-29 12:48 | P.PN_ITS ---
[facility] Anesthesia Record Part I Intake, IV Amount: 600 Estimated blood loss (mL): 0 Urine output (mL): 0 Blood Pressure: 120/78 SaO2: 100 Pulse Rate: 61 Respiratory Rate: 14 Temperature: 97 F Patient is:: Drowsy, Oral/Nasal airway Stable to PACU at:: 12:47
--- NOTE | 2021-07-29 13:45 | HMH.OPNOTE ---
Date of procedure: 07/29/21 Pre-op Diagnosis:: Desire for sterilization Post-op Diagnosis:: Desire for sterilization Procedure performed:: Laparoscopic bilateral salpingectomy Surgeon:: Shawn Carlson MD [employer] SUPERINTENDENT:: Julian Polk Anesthesia: GETA Estimated blood loss (mL): 25 Clinical Note:: She is a 31-year-old lady who expressed desire for sterilization. The risks and benefits as well as the irreversibility of bilateral salpingectomy were discussed with the patient prior to surgery. Operative findings:: She had a normal-appearing anteverted uterus. The deep pelvis was normal. The ovaries and tubes appeared normal. Operative note:: She was taken to the operating room where general anesthesia was found be adequate. She was prepped and draped in normal sterile fashion in the semilithotomy position. A weighted speculum was placed in the vagina and the anterior lip of the cervix was grasped with a tenaculum. I then inserted a Cherelle uterine manipulator into the cervical os. The balloon was then insufflated. I changed gloves and injected 10 cc of 0.5% ropivacaine around her umbilicus and made a small incision within the umbilicus. I inserted a Veress needle into the abdominal cavity. The peritoneal cavity was then insufflated with carbon dioxide gas to a pressure of 20 mmHg. I then inserted a 5 millimeter trocar under direct vision. I injected through and through the pubic hairline, made a small incision here and inserted an 8 mm trocar under direct vision. I identified the inferior epigastric artery on the left side, went lateral to these and injected through and through. I then placed a 5 mm trocar here under direct vision. The pelvis and upper abdomen were then inspected and the findings were as previously dictated. I grasped the right tube at the cornua and using harmonic scalpel on coagulation mode I cut through the tube. I then grasped the distal tube and using harmonic scalpel cut along the mesosalpinx. The tube was removed through 8 mm trocar site. This was similarly performed on the patient's left side. I then injected 30 cc of 0.5% ropivacaine into the pelvis. After assuring hemostasis the gas was let out of the abdomen and hemostasis was once again assured. The abdomen was then reinsufflated. The secondary trochars were removed under direct vision. The gas was let out her abdomen. The primary trocar was then removed. The 8 mm trocar site was closed deeply with 2-0 Vicryl suture followed by subcuticular 4-0 Monocryl suture. The 5 mm trocar sites were closed with subcuticular 4-0 Monocryl. Sterile dressings were applied. The patient tolerated the procedure well and was taken to the recovery room in excellent condition. All sponge instrument and needle counts were correct. The estimated blood loss was less than 25 cc. Condition: stable Disposition: PACU Specimens:: Bilateral fallopian tubes Complications:: None
[2021-08-01 08:50] VITALS: BP 122/75; PULSE 58; TEMP 36.5
--- NOTE | 2021-08-01 08:50 | HMH.ANESII ---
[facility] Anesthesia Record Part II Discharge Time: 13:27 [facility]ination[facility] PAC[facility] nurse assessment reviewed?: Yes Patient Condition:: Good Anesthesia Complications:: None Swallowing reflex intact?: Yes Cyanosis?: No Blood Pressure: 122/75 Pulse Rate: 58 Temperature: 97.7 F Mental Status: Alert & Oriented Pain level:: 7 Nausea and/or vomitting:: None Intake, IV Amount: 400
== END 2021-07-29 14:00 | disposition home or self-care (01) ==
LOC: OR 09:32
PROVIDERS: PCP Nurse Practitioner Obstetrics & Gynecology; Visit Provider Nurse Practitioner Obstetrics & Gynecology
PROC: (CPT 58700; principal; 2021-07-29 11:30)
DX: Z30.2 Encounter for sterilization (principal); K21.9 Gastro-esophageal reflux disease without esophagitis; F41.9 Anxiety disorder, unspecified; Z72.0 Tobacco use; F12.90 Cannabis use, unspecified, uncomplicated; Z79.899 Other long term (current) drug therapy; Z83.3 Family history of diabetes mellitus; Z82.49 Family history of ischemic heart disease and other diseases of the circulatory system
CPT/HCPCS: 58661; 96374; J2405

== ENCOUNTER → 2021-12-16 16:50 | Outpatient (CLI) | payer OTHER, SELFPAY ==
--- NOTE | 2021-12-16 16:53 | MR_ITS ---
PROCEDURE INFORMATION: Exam: MR Lumbar Spine Without Contrast Exam date and time: 12/16/2021 4:55 PM Age: 31 years old Clinical indication: Low back pain; Additional info: Chronic bilateral low back pain TECHNIQUE: Imaging protocol: Magnetic resonance imaging of the lumbar spine without contrast. COMPARISON: US OB BPP W/FET-MAT S/D 03/25/2021 11:30 AM FINDINGS: Bones/joints: Transitional configuration of the lumbosacral junction. Vertebral bodies are normal in vertical dimension and signal intensity with alignment maintained. Osteophytosis and eburnation of the sacroiliac articulating surfaces. Disc dehydration and loss of disc height at L4-L5 and L5-S1. Small tear in the posterior annulus fibrosis at L5-S1. Spinal cord: Conus terminates at L1-L2. L1-L2: No significant disc disease. No significant spinal canal stenosis. No neural foraminal stenosis. L2-L3: No significant disc disease. No significant spinal canal stenosis. No neural foraminal stenosis. L3-L4: No significant disc disease. No significant spinal canal stenosis. No neural foraminal stenosis. L4-L5: No significant disc disease. No significant spinal canal stenosis. No neural foraminal stenosis. L5-S1: No central canal stenosis. Bilateral foraminal stenosis due to loss of disc height, posterolateral disc and osteophyte complex and degenerative facet arthropathy. There may be mass effect on the left L5 nerve root as it exits the neural foramina. Soft tissues: Unremarkable. IMPRESSION: 1. Bilateral neural foraminal canal stenosis at L5-S1 due to loss of disc height, posterolateral disc and osteophyte complex and degenerative facet arthropathy. There may be mass effect on the left L5 nerve root as it exits the neural foramina. 2. Transitional configuration of the lumbosacral junction. 3. Disc dehydration and loss of disc height at L4-L5 and L5-S1. 4. Small tear in the posterior annulus fibrosis at L5-S1. 5. Osteoarthritis of the sacroiliac articulating surfaces.
== END ==
PROVIDERS: PCP Family Medicine; Visit Provider Family Medicine
DX: M54.50 Low back pain, unspecified (principal); G89.29 Other chronic pain
CPT/HCPCS: 72148; 76376

== ENCOUNTER → 2022-01-02 10:48 | Outpatient (POV) | payer OTHER, SELFPAY ==
[2022-01-02 11:12] VITALS: BP 118/81; PULSE 76; RESP 20; TEMP 37; O2SAT 100; BMI 21.7
--- NOTE | 2022-01-02 11:29 | [facility].PMCON ---
Assessment and Plan (1) Degenerative disc disease, lumbar Status: Acute Category: Medical Code(s): M51.36 - Other intervertebral disc degeneration, lumbar region (2) Sacroiliitis Status: Acute Category: Medical Code(s): M46.1 - Sacroiliitis, not elsewhere classified (3) Greater trochanteric bursitis of right hip Status: Acute Category: Medical Code(s): M70.61 - Trochanteric bursitis, right hip - Assessment and plan all Dx Assessment and Plan for all problems:: Patient presents today as a new patient with worsening low back pain that radiates to the right lower extremity. She does have point of tenderness around the right SI joint and right greater trochanteric bursa. She does have positive SI exam. We will schedule this patient for a right SI injection and right greater trochanteric bursa injection. If the patient gets minimal relief from this injection, we can certainly consider scheduling the patient for a lumbar epidural steroid injection. Patient has been instructed to contact the clinic with any concerns before the next appointment. Dr. Florentino has reviewed this note and agrees with this plan of care. This note was dictated using voice recognition software and make contain errors or omissions. HPI - Data of Consult Patient: new to practice Consult date: 01/02/22 Requesting Physician: NNAMDI Slater Primary Care Provider: Rudy Blanchard MD - Consult Narrative Reason for consult: LBP, Right Hip pain History of present illness: Ms. Delgado is a 31 year old female who presents today as a new patient. Patient is referred by Dr. Blanchard. Thank you for the referral. Patient presents today with chronic low back pain that radiates to her the right lower extremity. This has gotten worse in the last couple of months. She does take care of 7 kids at home. She does stay busy. Denies any preceding factors such as traumas or falls. She states that she cannot tolerate any prolonged activity such as sitting, standing, and walking. Describes the pain as constant, achy. Rates her pain as 8 out of 10. She has tried physical therapy for 6 weeks but only provided about 20% of improvement. She currently takes naproxen 500 mg twice a day, Flexeril 10 mg at night, tramadol 50 mg twice a day as needed. She states that the naproxen and Flexeril are helping some of her pain but the tramadol is not helping her pain at all. She did present today with an updated MRI that shows bilateral foraminal stenosis due to loss of disc height at L5-S1. This is also causing some degenerative facet arthropathy and may affect the left L5 nerve root. Alex [id number] and an active morphine equivalent of 15. CC: NNAMDI Slater [facility] History I have reviewed the patient's past medical history: Yes Medical History: Reports:: Anxiety, Gastroesophageal Reflux Disease(GERD) Denies:: Cancer, Diabetes Mellitus Type 1, Diabetes Mellitus Type 2, Internal Pacemaker, MRSA, Seizures *Have you ever received a pneumonia vaccine?: No *Have you received a flu vaccine this season?: No Other Medical History: Denies: Blood Transfusion Reaction Other Surgeries: Yes: Bariatric Surgery, Cholecystectomy, , Tubal Ligation. No: Pacemaker Amputation: No Fractures: No - *Social History Smoking Status: Current every day smoker Tobacco Type: cigarettes # Packs/Day (cigarettes): 1 Alcohol Intake: never Substance Use Type: marijuana *Occupational Status:: other Housing: house Household Members: significant other, family *Travel in the last 8 weeks: None - Psychiatric History Pschychiatric History:: Reports:: Anxiety Family Hx:: Diabetes, Hypertension Review of Systems - Review of Systems Review of Systems: General: No recent weight changes, no fever, no sleep disturbances Respiratory: No cough, no shortness of air, no recurring pulmonary infections Cardiovascular/peripheral vascular: No chest pain, no palpitations, no edema, no shortnes
== END ==
PROVIDERS: PCP Family Medicine; Visit Provider Student in an Organized Health Care Education/Training Program
DX: M51.36 Other intervertebral disc degeneration, lumbar region (principal); M46.1 Sacroiliitis, not elsewhere classified; M70.61 Trochanteric bursitis, right hip
CPT/HCPCS: 99202; G0463

== ENCOUNTER 2022-01-13 10:58 | Day surgery (SDC) | payer OTHER, SELFPAY ==
[2022-01-13 11:10] VITALS: BP 112/76; PULSE 79; TEMP 36.8; O2SAT 100; BMI 20.9
[2022-01-13 11:31] VITALS: BP 115/81; PULSE 75; RESP 18; O2SAT 100
--- NOTE | 2022-01-13 11:34 | P.PCN_ITS ---
- Procedure Date: 01/13/22 Time: 11:34 Anesthesiologist:: Eladio Dudley CRNA Complications:: None Pre-procedure Diagnosis:: Right sacroiliitis. Right trochanteric bursitis. Post-procedure Diagnosis:: Same Indications for Procedure:: This patient is a very pleasant 31-year-old female who comes our clinic today with extreme point tenderness over the right SI joint as well as the right trochanteric bursa. She complains of posterior hip pain as well as right leg pain. She rates her pain 7/10. Procedure Details:: Procedure: Right sacroliliac joint injection under fluoroscopy Informed consent was obtained and the risk and benefits of the procedure were explained to the patient.~ The patient was taken to the procedure room and noninvasive monitors were placed including noninvasive blood pressure cuff and pulse oximeter.~ The patient was placed prone on the procedure table.~ The~ right hip was cleansed using Betadine as a cleansing solution.~ C-arm fl uorosocpy was used to view the right SI joint.~ The skin and subcutaneous tissues were anesthetized using Lidocaine 1.5% and a 25-gauge needle.~ After this, a 22-gauge spinal needle was inserted under fluoroscopic guidance into the inferior aspect of the right SI joint.~ Omnipaque dye was injected and a good spread was seen throughout the joint.~ After this, approximately 5 mL of bupivacaine 0.25% and Depo-Medrol 40 mg was incrementally injected into the sacroiliac joint.~ The patient tolerated the procedure well with no complications.~ The patient was observed in the Pain Clinic, then discharged home neurologically intact.~ Procedure: Right trochanteric bursa injection under fluoroscopy We then moved to the right trochanteric bursa.~ C-arm fluoroscopy was used to view the left greater trochanter.~ The skin and subcutaneous tissues overlying the right greater trochanter were anesthetized using lidocaine, 1.5% and a 25- gauge needle.~ After this, a 22-gauge spinal needle was inserted and advanced until it contacted the right greater trochanter.~ Dye was injected and good spread was seen throughout the right trochanteric bursa. After this, approximately 5 mL of bupivacaine, 0.25% and Depo-Medrol, 40 mg was incrementally injected into the right right trochanteric bursa.~ The patient tolerated the procedure well with no complications. Plan and Disposition:: Patient was discharged without incident.
== END 2022-01-13 11:32 | disposition home or self-care (01) ==
LOC: SC.PAINP 10:59
PROVIDERS: PCP Family Medicine; Visit Provider Nurse Anesthetist, Certified Registered
DX: M46.1 Sacroiliitis, not elsewhere classified (principal); M70.61 Trochanteric bursitis, right hip
CPT/HCPCS: 20610; 27096; 77002; G0260; J1040

== ENCOUNTER → 2023-03-26 14:26 | Outpatient (CLI) | payer OTHER, SELFPAY ==
[2023-03-26 13:21] LABS: Basophils % 0.4 % (0.1-2.0); Eosinophils # 0.1 K/mm3 (0.0-0.4); Eosinophils % 1.9 % (0.1-12.0); Hematocrit 32.7 % (37.0-47.0); Hemoglobin 10.9 g/dL (12.2-16.2); Lymphocytes % 41.4 % (10-50); Mean Corpuscular HGB Conc 33.4 g/dL (31.8-35.4); Mean Corpuscular Hemoglobin 26.3 pg (27.0-31.2); Mean Corpuscular Volume 78.7 fl (81-99); Mean Platelet Volume 7.5 fl (7.4-10.4); Monocytes # 0.4 K/mm3 (0.1-1.0); Monocytes % 4.9 % (1.7-9.3); Neutrophils # 3.7 K/mm3 (1.8-7.8); Neutrophils % 51.3 % (37.0-80.0); Platelet Count 337 K/mm3 (142-424); Red Blood Count 4.16 M/mm3 (4.20-5.40); Red Cell Distribution Width 17.7 % (11.5-17.5); White Blood Count 7.3 K/mm3 (4.8-10.8)
[2023-03-26 14:05] LABS: Chloride 103 mmol/L (98-107)
[2023-03-26 14:06] LABS: Potassium 3.7 mmoL/L (3.5-5.1); Sodium 137 mmol/L (136-145)
[2023-03-26 14:08] LABS: Alanine Aminotransferase 22 U/L (12-78); Alkaline Phosphatase 74 U/L (38-126); Aspartate Amino Transferase 30 U/L (14-36); Bilirubin,Total 0.2 mg/dl (0.2-1.3); Blood Urea Nitrogen 10 mg/dl (7-17); Estimated Glomerular Filt Rate 96 ml/min (>60); GFR (African American) 116 ML/MIN (>60)
[2023-03-26 14:09] LABS: Albumin Level 4.3 g/dl (3.5-5.0); Albumin/Globulin Ratio 1.6 (1.1-1.8); Anion Gap 9.7 mEq/L (5-15); Calcium 8.7 mg/dl (8.4-10.2); Carbon Dioxide 28 mmol/L (22.0-30.0); Globulin 2.7 g/dL (1.3-3.2); Glucose 76 mg/dl (74-100)
[2023-03-26 14:51] LABS: Thyroid Stimulating Hormone 1.91 uIU/mL (0.465-4.68)
[2023-03-26 14:54] LABS: Ferritin 4.23 ng/ml (6.24-137)
[2023-03-26 14:56] LABS: 25-OH Vitamin D, Total 31.8 ng/mL (30-100)
[2023-03-26 16:00] LABS: Vitamin B12 223 pg/mL (239-931)
[2023-03-28 13:36] LABS: Antinuclear Antibodies (ANA) NEGATIVE
== END ==
PROVIDERS: PCP Nurse Practitioner Family; Visit Provider Nurse Practitioner Family
DX: D50.9 Iron deficiency anemia, unspecified (principal); R60.9 Edema, unspecified; E53.8 Deficiency of other specified B group vitamins; R79.89 Other specified abnormal findings of blood chemistry; Z68.25 Body mass index [BMI] 25.0-25.9, adult
CPT/HCPCS: 80053; 82306; 82607; 82728; 84443; 85025; 86038